=== PATIENT | male | born 1955 | race Caucasian/White ===

== ENCOUNTER → 2018-02-27 | Outpatient (CLI) | payer OTHER ==
--- NOTE | ~2018-02-27 | EXE ---
[facility] Eddie Gaia [place] [address] STRESS ECHOCARDIOGRAM Name: NISHI HAN Room #: REG Emmy#: [id number] Admission: 02/27/18 Attend Phys: Boubacar Davis, Discharge: Date of : 59 Date of Service: 02/27/18 1220 Report #: [id number] THIS REPORT FOR: //name// APPROVED REPORT Study performed: 02/27/2018 09:08:22 Exam: Stress Echocardiogram Indication: Hyperlipidemia Patient Location: Out-Patient Stress Nurse: Татьяна Mcmullen RN Room #: Echo lab 2 Status: routine Ht: 4 ft 11 in HR: 77 bpm BP: 110/70 mmHg Rhythm: NSR Medical History Medical History: Hyperlipidemia Cardiac Risk Factors: Hyperlipidemia Exercise History: Physically active Procedure The patient underwent an Exercise Stress Test using the Abdias Protocol. Blood pressure, heart rate, and EKG were monitored. An Echocardiogram was performed by vocational rehabilitation technician in four stages in quad fashion. At peak stress, four selected images were obtained and placed side by side with resting images for comparison. Stress Test Details Stress Test: Exercise stress testing was performed using a Abdias protocol. HR Resting HR: 77 bpm Max Heart Rate (APMHR): 160 bpm Max HR Achieved: 160 bpm Target HR (85% APMHR): 136 bpm % of APMHR: 100 Recovery HR: 105 bpm HR response to stress: Normal HR response to stress BP Resting BP: 110/70 mmHg Max BP: 164/72 mmHg Recovery BP: 138/62 mmHg BP response to stress: Normal blood pressure response to [facility] [address] [place] [address] STRESS ECHOCARDIOGRAM Name: GUNNERSALVADORVERONICANISHI MALONE Room #: REG Emmy#: [id number] Admission: 02/27/18 Attend Phys: Boubacar Davis, Discharge: Date of : 59 Date of Service: 02/27/18 1220 Report #: [id number] stress. ECG Clinical Reason for Termination: Maximal effort Exercise duration: 10 min 30 sec Highest Stage Achieved: Stage 4: 4.2 mph at 16% grade. Exercise capacity: 13.4 METs Overall Exercise Capacity for Age: Good Pre-Stress Echo The resting Echocardiogram showed normal left ventricular contractility with an estimated Ejection Fraction of about >55%. Post-Stress Echo The stress Echocardiogram showed normal left ventricular contractility with an estimated Ejection Fraction of about 65-70%. Clinical Normal augmentation of myocardial wall segments using a 17 segment model. Conclusion Clinical Response: Non-ischemic Exercise Capacity: Average Stress ECG Response: Non-ischemic Stress Echo Images: Non-ischemic Other Information Study Quality: Adequate <ELECTRONICALLY SIGNED> By: Boubacar Davis MD, [facility] 02/27/18 1220 1220 1220 Boubacar Davis MD, FACC /INF
== END ==
LOC: CV 02-23 11:30
DX: E78.5 Hyperlipidemia, unspecified (principal); R07.9 Chest pain, unspecified; R06.02 Shortness of breath

== ENCOUNTER → 2019-06-26 | Outpatient (CLI) | payer OTHER | LOC: SJCVCIMAG 07:39 | DX: I25.10 Atherosclerotic heart disease of native coronary artery without angina pectoris (principal) ==